=== PATIENT | female | born 1995 | race Two or more races ===

== ENCOUNTER 2017-01-28 19:50 | Emergency (ER) | payer MEDICAID ==
[~2017-01-28 19:50] MED LIST: IBUPROFEN800 M1 PO; PRENATAL VITAM1 EA12; SURFAK240 M2 PO; TYLENOL WITH C1 EACH PO
[2017-01-28] MEDS ORDERED: NO HOME MEDICATION XX (20:04)
[2017-01-28 21:14] LABS: BASO % 0.2 % (0-2); EOS % 0.3 % (0-7); EOSINOPHIL ABSOLUTE COUNT 0.1 tho/cmm (0.0-0.7); HCT-HEMATOCRIT 41.8 % (34.0-49.0); IMMATURE GRANULOCYTES ABSOLUTE 0.05 tho/cmm (0-0.03); IMMATURE GRANULOCYTES PERCENT 0.3 % (0-0.3); LYMPH % 6.9 % (20-45); LYMPH ABSOLUTE COUNT 1.2 tho/cmm (0.8-4.5); MCH (MEAN CORPUSCULAR HGB) 27.2 pg (28.0-32.0); MCHC MEAN CORPUSCULAR HGB CONC 33.5 % (32.0-36.0); MCV (MEAN CELL VOLUME) 81.3 fl (82.0-96.0); MEAN PLATELET VOLUME 9.6 cmc (9.4-12.4); MONO % 7.1 % (0-12); MONOCYTE ABSOLUTE COUNT 1.2 tho/cmm (0.0-1.2); NEUTROPHIL ABSOLUTE COUNT 14.5 tho/cmm (1.6-8.0); NEUTROPHIL-AUTOMATED 14.5 tho/cmm (1.6-8.0); NEUTROPHILS % 85.2 % (40-80); PLATELET COUNT 274 tho/cmm (150-450); RED BLOOD COUNT 5.14 mil/cmm (4.00-5.20); RED CELL DISTRIBUTION WIDTH 13.2 % (12.4-16.4)
[2017-01-28 21:25] LABS: ALB/GLOB RATIO 0.9 (0.8-2.0); ALBUMIN 3.6 g/dl (3.5-5.0); ALKALINE PHOSPHATASE 107 U/L (33-138); ALT/SGPT 42 U/L (12-78); ANION GAP 14 mmol/L (0-20); AST/SGOT 69 U/L (10-40); BILIRUBIN,TOTAL 0.3 mg/dl (0-1.5); BLOOD UREA NITROGEN 11 mg/dl (6-24); CALCIUM 8.7 mg/dl (8.5-10.5); CARBON DIOXIDE-VENOUS 27 mmol/L (22-32); CHLORIDE 103 mmol/l (96-110); CREATININE 0.72 mg/dl (0.50-1.10); GLUCOSE 104 mg/dL (70-110); POTASSIUM 3.9 mmol/L (3.7-5.1); SODIUM 140 mmol/L (135-145); eGFR VALUE FOR BLACK >90 mL/Min
[2017-01-28 21:30] LABS: LIPASE 6461 U/L (73-393); PREGNANCY-SERUM NEGATIVE (NEGATIVE)
[2017-01-29 00:38] LABS: URINE BILIRUBIN NEGATIVE (NEG); URINE BLOOD NEGATIVE (NEG); URINE GLUCOSE (UA) NEGATIVE (NEG); URINE KETONE NEGATIVE (NEG); URINE LEUKOCYTE ESTERASE POSITIVE (NEG); URINE NITRITE NEGATIVE (NEG); URINE PROTEIN NEGATIVE (NEG)
[2017-01-29 00:39] LABS: URINE APPEARANCE HAZY; URINE COLOR YELLOW
[2017-01-29 00:46] LABS: URINE BACTERIA 2+; URINE RBC 0 /[HPF] (0-5)
== END 2017-01-29 03:35 ==
LOC: EDMED 19:50
PROVIDERS: Nurse Practitioner Family
DX: K85.10 Biliary acute pancreatitis without necrosis or infection (principal)
CPT/HCPCS: J7030